=== PATIENT | male | born 2000 | race African-American/Black ===

== ENCOUNTER 2022-09-19 13:40 | Outpatient (CLI) | payer OTHER ==
--- NOTE | 2022-09-19 15:13 | MRI Report ---
PROCEDURE: KNEE WO - RT INDICATIONS: [place] OSTEOCHONDROSIS OF TIBIA TUBERCLE TECHNIQUE: Noncontrast sagittal PD fast spin echo and T2 fast spin echo with fat saturation, sagittal 3-D spoile d GE with fat saturation; coronal T1 spin echo and PD fast spin echo with fat saturation, and axial P D fast spin echo with fat saturation through the knee. COMPARISON: None. FINDINGS: Image quality: Excellent. Anterior cruciate ligament: Intact. Posterior cruciate ligament: Intact. Medial collateral ligament: Intact. Lateral collateral ligament: Intact. Medial meniscus: Intact. Lateral meniscus: Intact. Medial and lateral tendons: The semimembranosus tendon insertions appear intact. Visualized portion s of the pes anserinus tendons appear normal. The popliteus tendon appears intact. Iliotibial band appears normal. 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 Additionally, there is mild elongation of the inferior pole of patella that may be related to prior Tglfuvl-Hgkaja-Tzcnksmty disease. There is mild patellar tendinosis. The distal q uadriceps tendon is intact. No patellar subluxation. No femoral trochlear dysplasia or ventral troch lear prominence. No edema in the infrapatellar fat pad. Bones: No acute trabecular bone injury or fracture. Medial femorotibial cartilage: Intact. Lateral femorotibial cartilage: Intact. Patellofemoral cartilage: Intact. Soft tissues: There is a small joint effusion. There is a trace medial popliteal cyst. The musculat ure surrounding the knee is normal in bulk. IMPRESSION: 1.Nonedematous osseous protuberance at the tibial tubercle is most likely the sequela of remote prior Waqas-Schlatter syndrome. Mild elongation of the inferior pole of patella may also be related to re mote prior Hauxpvb-Scrntk-Mdciiobjt disease. 2.Mild patellar tendinosis. 3.Cruciate and collateral ligaments are intact. No meniscal tear. No acute trabecular bone injury or focal cartilage defect. Reviewed by: Rudy Diana MD on 09/19/2022 3:11 PM PDT Approved by: Rudy Diana MD on 09/19/2022 3:11 PM PDT Station ID: [id number]
== END 2022-09-19 13:41 | disposition home or self-care (01) ==
LOC: DI 13:40
PROVIDERS: ATTEND Student in an Organized Health Care Education/Training Program
DX: M92.521 Juvenile osteochondrosis of tibia tubercle, right leg (principal); M67.863 Other specified disorders of tendon, right knee

== ENCOUNTER 2022-12-25 08:00 | Outpatient (CLI) | payer OTHER ==
--- NOTE | 2022-12-25 12:54 | XRAY Report ---
PROCEDURE: Knee 4 View RT INDICATIONS: RIGHT KNEE PAIN TECHNIQUE: 4 views of the right knee(s) were acquired. COMPARISON: MRI knee 09/19/2022 FINDINGS: Bones: No fractures or dislocations. No suspicious bony lesions. Mild irregularity at the tibial tubercle. Mild elongation of the inferior patella pole. Soft tissues: No knee joint effusion. No suspicious soft tissue calcifications or masses. IMPRESSION: No acute bony abnormality. No visualized acute fracture or dislocation. However, occult injury cannot be excluded. Recommend michelle rt interval imaging follow-up in 7-10 days as clinically indicated for additional evaluation. Mild irregularity at the tibial tubercle, possibly related to sequela of prior Waqas-Schlatter syndr ome. Mild elongation of the inferior patella pole, possibly related to prior Pzbdbrq-Ggwagu-Rkybfcmtt dise ase. Reviewed by: Ronna Borjas MD on 12/25/2022 12:52 PM PDT Approved by: Ronna Borjas MD on 12/25/2022 12:52 PM PDT Station ID: [id number]
== END 2022-12-25 23:59 | disposition home or self-care (01) ==
LOC: DI.WOS 08:00
PROVIDERS: ATTEND Physician Assistant Surgical
DX: M25.561 Pain in right knee (principal)

== ENCOUNTER 2023-09-21 09:13 | Outpatient (CLI) | payer OTHER ==
[~2023-09-21 09:13] MED LIST: GADOTERATE MEGLUMINE 10 MMOL/20 ML VIAL ONE
[2023-09-21] MEDS: GADOTERATE MEGLUMINE 10 MMOL/20 ML VIAL IVP ONE (10:38)
--- NOTE | 2023-09-23 17:50 | MRI Report ---
PROCEDURE: Brain W/WO INDICATIONS: HEADACHE CONTRAST: CLARISCAN 20.0 ML TECHNIQUE: Noncontrast axial T1 spin echo, axial T2 fast spin echo, sagittal and axial FLAIR, coronal T2 fast sp in echo, axial gradient echo, axial diffusion and ADC through the brain. After the administration of contrast, axial and coronal T1 spin echo with fat saturation through the brain. COMPARISON: None. FINDINGS: Image quality: Excellent. CSF spaces: Basal cisterns are patent. No extra-axial fluid collections. Ventricles are normal in size and shape. Brain: No midline shift. No intracranial bleeds or masses. No abnormal intracranial enhancement. There is cerebral volume loss for age. There is periventricular white matter chronic small vessel is chemic change. The brainstem appears normal. Diffusion-weighted images demonstrate no acute ischemi c insults. No chronic ischemic insults. Normal intravascular flow voids are present. Skull and face: Calvarial marrow is normal in signal. Orbits appear normal. Sinuses: Sinuses and mastoids appear clear. IMPRESSION: No cause of headache can be seen on these images. No masses or abnormal enhancement can be seen. Reviewed by: Mao Alanis MD on 09/23/2023 4:49 PM CAROLIN Approved by: Mao Alanis MD on 09/23/2023 4:49 PM AKCAROLYN Station ID: [id number]
== END 2023-09-21 09:14 | disposition home or self-care (01) ==
LOC: DI 09:13
PROVIDERS: ATTEND Preventive Medicine Aerospace Medicine
DX: R51.9 Headache, unspecified (principal)
CPT/HCPCS: 70553; A9575

== ENCOUNTER 2023-11-26 10:45 | Outpatient (CLI) | payer OTHER ==
--- NOTE | 2023-11-26 17:34 | XRAY Report ---
PROCEDURE: Lumbar Spine 2-3V INDICATIONS: BACK PAIN, LOW TECHNIQUE: 3 views of the lumbar spine were acquired. COMPARISON: None. FINDINGS: Surgical change: None. Bones: 5 auj-apu-zoyqwbt vertebrae are present. There is normal bony alignment. No vertebral body co mpression fractures. No suspicious bony lesions. Vertebral body height and disc spaces are maintaine d. Soft tissues: Overlying bowel gas pattern is normal. No suspicious soft tissue calcifications. IMPRESSION: No acute osseous abnormality or significant degenerative changes. Reviewed by: Joselin Mancia MD on 11/26/2023 5:33 PM PDT Approved by: Joselin Mancia MD on 11/26/2023 5:33 PM PDT Station ID: [id number]
== END 2023-11-26 11:00 | disposition home or self-care (01) ==
LOC: DI.N 10:45
PROVIDERS: ATTEND Family Medicine
DX: M54.50 Low back pain, unspecified (principal)

== ENCOUNTER 2023-12-22 18:32 | Emergency (ER) | payer OTHER ==
--- NOTE | 2023-12-22 19:03 | ED Physician Documentation ---
History of Present Illness - Stated complaint Stated Complaint: CHEST PX - Chief complaint Chief Complaint: Cardiac - History of Present Illness Timing: Prior to arrival - Additonal information Additional information: Patient is a 23-year-old male presenting to the emergency department with anterior chest pain. He describes it as pain worsening with taking a deep breath and also describes it as an emptiness feeling. He notes it has been going on for about a week after having severe sudden anterior chest pain about a week ago that then has been a persistent dull pain since then. He notes worsen ing pain with taking a deep breath. He has no history of cardiac or lung problems. He takes chronic pain medications including duloxetine, gabapentin, lidocaine, naproxen for chronic right knee pain but no other medications at home. He denies any viral URI symptoms. No fevers no lower leg swelling no dizziness or lightheadedness associated with his symptoms. He denies any recent travel he denies any recent surgeries. PD PAST MEDICAL HISTORY - Past Medical History Past Medical History: Yes Neuro: Migraines Musculoskeletal: Chronic back pain - Past Surgical History Past Surgical History: No - Present Medications Home Medications: Ambulatory Orders Medication Instructions Recorded Confirmed Cyclobenzaprine [Flexeril] 10 mg PO TID PRN 12/22/23 12/22/23 Diclofenac Sodium 1% Gel [Voltaren 2 gm TOP QID PRN 12/22/23 12/22/23 Gel] Ibuprofen 600 mg PO Q6HR PRN 12/22/23 12/22/23 Lidocaine Patch 5% [Lidoderm Patch] 1 each TOP DAILY 12/22/23 12/22/23 Ondansetron Odt [Zofran Odt] 4 mg TL Q6H PRN 12/22/23 12/22/23 Prazosin [Minipress] 1 mg PO QPM 12/22/23 12/22/23 Rizatriptan Benzoate [Rizatriptan] 10 mg PO DAILY PRN 12/22/23 12/22/23 - Allergies Allergies/Adverse Reactions: Allergies Allergy/AdvReac Type Severity Reaction Status Date / Time No Known Drug Allergies Allergy Verified 12/22/23 18:36 - Social History Does the pt smoke?: No Smoking Status: Never smoker Does the pt drink ETOH?: No Does the pt have substance abuse?: No - Immunizations Immunizations are current?: Yes - POLST Patient has POLST: No PD ED PE NORMAL - Vitals Vital signs reviewed: Yes - General General: Alert and oriented X 3 - HEENT HEENT: Atraumatic - Neck Neck: Supple, no meningeal sign - Cardiac Cardiac: RRR, No murmur, No gallop, No rub - Respiratory Respiratory: No respiratory distress, Clear bilaterally, Other (No reproducible anterior chest pain on examination.) - Abdomen Abdomen: Normal bowel sounds, Soft, Non tender, Non distended - Back Back: No CVA TTP, No spinal TTP - Derm Derm: Normal color, No rash, Other - Extremities Extremities: No deformity, No tenderness to palpate, Normal ROM s pain, No edema - Neuro Neuro: Alert and oriented X 3 Eye Opening: Spontaneous Motor: Obeys Commands Verbal: Oriented GCS Score: 15 Results - Vitals Vitals: Vital Signs - 24 hr 12/22/23 12/22/23 12/22/23 18:36 18:52 20:42 Temperature 36.8 C Heart Rate 100 108 H 76 Respiratory 16 14 16 Rate Blood Pressure 150/90 H 150/89 H 133/87 H O2 Saturation 99 97 99 12/22/23 22:00 Temperature Heart Rate 97 Respiratory 16 Rate Blood Pressure 132/67 H O2 Saturation 99 Oxygen O2 Source Room air - EKG (time done) 1900 EKG releavant findings:: EKG personally interpreted by author of this note. Relevant findings are: ST elevation consistent with early repolarization Rate: Rate (enter#), Anthony, Tachy, Other Rhythm: NSR [place]: Normal Intervals: Normal [place] QRS: Normal, LVH Ischemia: Normal ST segments Compare to prior EKG: Unchanged from prior EKG Computer interpretation: Agree with computer - Labs Labs: Laboratory Tests 12/22/23 12/22/23 12/22/23 19:02 19:02 19:30 WBC 9.4 RBC 5.42 Hgb 15.6 Hct 45.9 MCV 84.7 MCH 28.8 MCHC 34.0 RDW 11.9 L Plt Count 294 MPV 10.8 Neut # (Auto) 5.2 Lymph # (Auto) 3.2 [place] # (Auto) 0.8 Eos # (Auto) 0.1 Baso # (Auto) 0.0 Absolute Nucleated RBC 0.00 Nucleated RBC % 0.0 D-Dimer 311.2 H Sodium 138 Potassium 3.7 Chloride 104 Carbon Dioxide 25 Anion Gap 9.0 BUN 16 Creatinine 1.0 Estimated GFR (MDRD) 113 Glucose 98 Calcium 10.1 Total Bilirubin 0.5 AST 25 ALT 79 H Alkaline Phosphatase 113 Troponin I High Sens < 2.3 L Total Protein 7.8 Albumin 4.7 Globulin 3.1 Albumin/Globulin Ratio 1.5 PD Medical Decision Making - ED course Complexity details: reviewed old records, reviewed results, re-evaluated patient ED course: Patient is a 23-year-old male presenting to the emergency department with anterior chest pain that has been persistent for a week he decides that as a severe onset of chest pain last week and now has been a dull persistent anterior chest pain since then. He denies any fevers cough congestion or sore throat. He denies any history of cardiac problems. He has not found anything is make his symptoms better or worse. His vitals are stable on arrival he is afebrile nontachycardic. He had labs obtained here in the emergency department showing no signs of Leukocytosis concerning for infection he had normal CMP. Chest x- ray shows bronchial cuffing consistent with viral URI. Patient given Toradol here in the emergency department for pain control with mild improvement. Patient was persistently tachycardic here in emergency department on arrival and D-dimer was obtained that was slightly elevated. Patient will be sent for CT scan of chest. Troponin and EKG show no acute findings. EKG shows ST elevation consistent with repolarization. and troponin is negative here in emergency department. No need for repeat troponin given it was over a week ago that this started. Pending CTA of chest patient is safe for discharged home. Patient taken over by Dr. Tadeo here in the ED. Departure - Departure Clinical Impression: Acute bronchiolitis, Atypical chest pain, Pleuritic chest pain Instructions: ED Chest Pain NonCardiac Comments: You were seen here in the emergency department for your anterior chest pain your workup here showed no acute findings except for possible acute bronchitis as sent some symptomatic medications to take at home for your symptoms. You should return with any worsening chest pain lower leg swelling fevers shortness of breath dizziness or lightheadedness. You need to follow-up with your PCP in the outpatient setting to ensure resolution of symptoms. Take medications as pr escribed and you can use a humidifier at home to help with your symptoms. Forms: PCP List
[2023-12-22 19:07] LABS: BASOPHILS % (AUTO) 0.4 %; EOSINOPHILS # (AUTO) 0.1 10^3/uL (0.0-0.7); EOSINOPHILS % (AUTO) 1.1 %; HCT - HEMATOCRIT 45.9 % (42.0-52.0); HGB - HEMOGLOBIN 15.6 g/dL (14.0-18.0); LYMPHOCYTES # (AUTO) 3.2 10^3/uL (1.5-3.5); LYMPHOCYTES % (AUTO) 34.4 %; MEAN CORPUSCULAR HEMOGLOBIN 28.8 pg (27.0-31.0); MEAN CORPUSCULAR VOLUME 84.7 fL (80.0-94.0); MEAN PLATELET VOLUME 10.8 fL (7.4-11.4); MONOCYTES # (AUTO) 0.8 10^3/uL (0.0-1.0); MONOCYTES % (AUTO) 8.4 %; NEUTROPHILS # (AUTO) 5.2 10^3/uL (1.5-6.6); NEUTROPHILS % (AUTO) 55.5 %; PLT - PLATELET COUNT 294 10^3/uL (130-450); RED BLOOD COUNT 5.42 10^6/uL (4.70-6.10); RED CELL DISTRIBUTION WIDTH 11.9 % (12.0-15.0); WHITE BLOOD COUNT 9.4 x10^3/uL (4.8-10.8)
--- NOTE | 2023-12-22 19:21 | XRAY Report ---
PROCEDURE: Chest 1V INDICATIONS: chest pain TECHNIQUE: One view of the chest was acquired. COMPARISON: None. FINDINGS: Surgical changes and devices: None. Lungs and pleura: Peribronchial cuffing. No consolidation or effusions. Mediastinum: Mediastinal contours appear normal. Heart size is normal. Bones and chest wall: No suspicious bony lesions. Overlying soft tissues appear unremarkable. IMPRESSION: Peribronchial cuffing, suggestive of infectious or inflammatory bronchitis. Reviewed by: Jackson Dietz MD on 12/22/2023 7:20 PM PDT Approved by: Jackson Dietz MD on 12/22/2023 7:20 PM PDT Station ID: [id number]
[2023-12-22 19:26] LABS: ALBUMIN 4.7 g/dL (3.2-5.5); ALBUMIN/GLOBULIN RATIO 1.5 (1.0-2.2); ALKALINE PHOSPHATASE 113 IU/L (42-121); ALT ALANINE AMINOTRANSFERASE 79 IU/L (10-60); AST ASPARTATE AMINOTRANSFERASE 25 IU/L (10-42); BILIRUBIN,TOTAL 0.5 mg/dL (0.2-1.0); BUN - BLOOD UREA NITROGEN 16 mg/dL (6-20); CALCIUM 10.1 mg/dL (8.5-10.3); CARBON DIOXIDE - CO2 25 mmol/L (21-32); CHLORIDE 104 mmol/L (101-111); GFR - MDRD 113 (>89); GLUCOSE 98 mg/dL (74-104); POTASSIUM 3.7 mmol/L (3.5-4.5); SODIUM 138 mmol/L (135-145); TOTAL PROTEIN 7.8 g/dL (6.4-8.9)
[2023-12-22 20:36] LABS: TROPONIN I HIGH SENSITIVITY < 2.3 ng/L (2.3-19.7)
[2023-12-22] MEDS: KETOROLAC 15 MG/ML VIAL IM STA (20:50)
[2023-12-22] MEDS ORDERED: iohexoL-300 100 ML VIAL ONE (21:44)
[2023-12-22] MEDS: iohexoL-300 100 ML VIAL IVP ONE (22:25)
--- NOTE | 2023-12-22 22:54 | CT Report ---
PROCEDURE: Angio Chest INDICATIONS: concern for PE, elevated ddimer CONTRAST: 100 ML OMNI 300 TECHNIQUE: After the administration of intravenous contrast, 2 mm axial images were acquired from the pulmonary apices to the posterior costophrenic angles during the arterial phase. In addition, 1 mm lung kernel and 5 mm soft tissue kernel reconstructions were performed. 3-dimensional coronal oblique maximum int ensity projection (MIP) reformats, 8 mm axial MIP, and 5 mm coronal and sagittal MPR reformats were t hen performed through the thorax. For radiation dose reduction, the following was used: automated exp osure control, adjustment of mA and/or kV according to patient size. COMPARISON: CXR earlier today. FINDINGS: Image quality: Excellent. Large vessels: No filling defects within the opacified pulmonary arteries, accounting for motion and contrast timing. No evidence of acute aortic syndrome or aortic aneurysm. Lungs and pleura: No consolidation. Question minimal bronchial wall thickening. No pleural effusions. No pneumothorax. No suspicious pulmonary nodules which require follow up. Mediastinum: Heart size is normal. No pericardial effusion. No large vessel abnormality. No mediastin al adenopathy by size criteria. Chest wall and lower neck: Thyroid is unremarkable. No axillary or supraclavicular adenopathy by size . Bones: No aggressive osseous abnormality. Upper Abdomen: Unremarkable. IMPRESSION: 1. No pulmonary embolism. 2. No consolidation. No groundglass opacity. Reviewed by: Garrett Ojeda MD on 12/22/2023 10:53 PM PDT Approved by: Garrett Ojeda MD on 12/22/2023 10:53 PM PDT Station ID: [id number]
[2023-12-22] MEDS: ALBUTEROL NEB 2.5 MG/3 ML INH ONE (23:09)
[2023-12-22] MEDS: BENZONATATE 100 MG CAPSULE PO STA (23:09)
[2023-12-22 23:18] VITALS: BP 122/68; O2SAT 98
[2023-12-23] MEDS ORDERED: guaiFENesin 600 MG TABLET PO SCH (09:00)
== END 2023-12-22 23:10 | disposition home or self-care (01) ==
LOC: ED 18:32
DX: J21.9 Acute bronchiolitis, unspecified (principal); R07.81 Pleurodynia
CPT/HCPCS: 36415; 71045; 71275; 80053; 84484; 85025; 85379; 93005; 96372; 99284; Q9967